=== PATIENT | male | born 1960 | race Caucasian/White ===

== ENCOUNTER 2016-06-04 02:13 | Emergency (ER) | payer MEDICARE ==
[~2016-06-04] VITALS: Ht 182.9 cm; Wt 85.9 kg
[2016-06-04 04:59] VITALS: BP 131/74
== END 2016-06-04 05:26 | disposition home or self-care (01) ==
LOC: ED 05:05
DX: J44.1 Chronic obstructive pulmonary disease with (acute) exacerbation (principal); E03.9 Hypothyroidism, unspecified; E11.9 Type 2 diabetes mellitus without complications; E78.00 Pure hypercholesterolemia, unspecified; I10 Essential (primary) hypertension
CPT/HCPCS: 71010; 93005

== ENCOUNTER 2016-10-13 00:50 | Inpatient (IN) | payer MEDICARE ==
[~2016-10-13] VITALS: Ht 182.9 cm; Wt 89.2 kg
[2016-10-13 01:48] LABS: DAU SCREEN DISCLAIMER
[2016-10-13 02:12] LABS: BLOOD UREA NITROGEN 30 mg/dL (7-18)
[2016-10-13 02:16] LABS: IS PT STATUS REG ER OR PRE ER? YES
[2016-10-13] MEDS ORDERED: OMNIPAQUE 350 MG/ML, 100ML BOTTLE ONE (03:05)
[2016-10-13] MEDS ORDERED: ONDANSETRON 2MG/ML, 2ML IVPush PRN ×2 (04:30→07:30)
[2016-10-13] MEDS ORDERED: ENOXAPARIN 80 MG/0.8 ML SQ ONE (04:30)
[2016-10-13] MEDS ORDERED: CEFTRIAXONE PMX 1GM/50ML 50 ML IV ONE (04:30)
[2016-10-13] MEDS ORDERED: AZITHROMYCIN 500 MG in SODIUM CHLORIDE 0.9% 250 ML IV ONE (04:30)
[2016-10-13] MEDS ORDERED: ENOXAPARIN 80 MG/0.8 ML ONE (04:31)
[2016-10-13] MEDS ORDERED: CEFTRIAXONE PMX 1GM/50ML 50 ML ONE (04:31)
[2016-10-13 06:14] VITALS: BP 105/71
[2016-10-13] MEDS ORDERED: BISACODYL 10 MG SUPP PR PRN (07:30)
[2016-10-13] MEDS ORDERED: ZOLPIDEM 5MG TABLET PO PRN (07:30)
[2016-10-13] MEDS ORDERED: ACETAMINOPHEN 325 MG TABLET PO PRN (07:30)
[2016-10-13] MEDS ORDERED: OXYcodone IR 5MG TABLET PO PRN (07:30)
[2016-10-13] MEDS ORDERED: POLYETHYLENE GLYCOL 17 GM PACKET PO PRN (07:30)
[2016-10-13] MEDS ORDERED: hydrALAzine 20 MG/ML, 1ML IVPush PRN (07:30)
[2016-10-13] MEDS ORDERED: DOCUSATE 100 MG CAPSULE PO PRN (07:30)
[2016-10-13] MEDS ORDERED: CYCLOBENZAPRINE 10 MG TABLET PO PRN (07:30)
[2016-10-13] MEDS ORDERED: POTASSIUM CHLORIDE 20 MEQ TAB.ER.PRT PO SCH (08:00)
[2016-10-13 08:54] VITALS: BP 135/94
[2016-10-13] MEDS ORDERED: FUROSEMIDE 40 MG/4 ML IV SCH (09:00)
[2016-10-13] MEDS ORDERED: LIDOCAINE 1%, 20ML ONE (11:20)
[2016-10-13] MEDS ORDERED: CEFTRIAXONE PMX 1GM/50ML 50 ML IV SCH (16:00)
[2016-10-13] MEDS ORDERED: ENOXAPARIN 80 MG/0.8 ML SQ SCH (17:00)
[2016-10-14] MEDS ORDERED: AZITHROMYCIN 500 MG in SODIUM CHLORIDE 0.9% 250 ML IV SCH (05:00)
== END 2016-10-13 11:48 | disposition left against medical advice (07) | DRG 175 ==
LOC: ED 02:36 → EDIP 04:10 → 5SO 05:57
PROVIDERS: ADMIT Internal Medicine
DX: I26.99 Other pulmonary embolism without acute cor pulmonale (principal); E43 Unspecified severe protein-calorie malnutrition; J18.9 Pneumonia, unspecified organism; I50.41 Acute combined systolic (congestive) and diastolic (congestive) heart failure; I31.3 Pericardial effusion (noninflammatory); R04.2 Hemoptysis; E03.9 Hypothyroidism, unspecified; E11.9 Type 2 diabetes mellitus without complications; Z68.26 Body mass index [BMI] 26.0-26.9, adult; E78.00 Pure hypercholesterolemia, unspecified; E78.5 Hyperlipidemia, unspecified; F17.200 Nicotine dependence, unspecified, uncomplicated; I11.0 Hypertensive heart disease with heart failure; J44.9 Chronic obstructive pulmonary disease, unspecified; Z59.0 Homelessness
CPT/HCPCS: 36415; 71275; 80048; 80307; 81003; 82040; 83880; 84484; 85025; 93005; 93306; 93970; 96365; 96368; 96372; J0456; J0696; J1650; J1940; J3490; Q9967; J7050

== ENCOUNTER 2016-11-13 06:33 | Emergency (ER) | payer MEDICARE | END 2016-11-13 07:10 | disposition left against medical advice (07) | LOC: ED 07:00 | DX: Z53.21 Procedure and treatment not carried out due to patient leaving prior to being seen by health care provider (principal) ==

== ENCOUNTER 2016-11-18 15:54 | Emergency (ER) | payer MEDICARE ==
[~2016-11-18] VITALS: Ht 182.9 cm; Wt 69.2 kg
[2016-11-18 15:56] VITALS: BP 107/64
== END 2016-11-18 16:22 | disposition left against medical advice (07) ==
LOC: ED 16:16
DX: S00.81XA Abrasion of other part of head, initial encounter (principal); J44.9 Chronic obstructive pulmonary disease, unspecified; I11.0 Hypertensive heart disease with heart failure; I50.9 Heart failure, unspecified; E11.9 Type 2 diabetes mellitus without complications; E03.9 Hypothyroidism, unspecified; Z86.711 Personal history of pulmonary embolism; E78.00 Pure hypercholesterolemia, unspecified; Y08.89XA Assault by other specified means, initial encounter; Y93.89 Activity, other specified; Y92.410 Unspecified street and highway as the place of occurrence of the external cause; Y99.9 Unspecified external cause status
CPT/HCPCS: 99281